=== PATIENT | female | born 1965 | race Caucasian/White ===

== ENCOUNTER 2022-03-19 18:29 | Emergency (ER) | payer MEDICAID, OTHER ==
[~2022-03-19] VITALS: Ht 147.3 cm; Wt 84.0 kg
[~2022-03-19 18:29] MED LIST: AMLODIPINE
[2022-03-19 18:51] VITALS: BP 128/78
[2022-03-20] MEDS ORDERED: ACET-2708 MT (00:43)
== END 2022-03-20 01:44 | disposition home or self-care (01) ==
LOC: ER 18:29
DX: M79.661 Pain in right lower leg (principal); I10 Essential (primary) hypertension; E11.9 Type 2 diabetes mellitus without complications; E03.9 Hypothyroidism, unspecified; Z88.6 Allergy status to analgesic agent
CPT/HCPCS: 73590; 99283

== ENCOUNTER 2024-02-10 07:24 | Emergency (ER) | payer MEDICAID, OTHER ==
[~2024-02-10] VITALS: Ht 149.9 cm; Wt 87.0 kg
[~2024-02-10 07:24] MED LIST changes: +ACET-2708 MT
[2024-02-10 07:28] VITALS: O2SAT 100
[2024-02-10 07:57] VITALS: BP 146/61; PULSE 60; RESP 16; TEMP 97.8; O2SAT 99
[2024-02-10] MEDS ORDERED: IBUP-2029 MT (09:42)
[2024-02-10] MEDS ORDERED: AMOX1TAB16 MT (09:42)
[2024-02-10] MEDS: AMOXICILLIN/POTASSIUM CLAVULANATE 875/125MG TAB PO ONE (10:06)
== END 2024-02-10 11:07 | disposition home or self-care (01) ==
LOC: ER 07:41
DX: K04.7 Periapical abscess without sinus (principal); E11.9 Type 2 diabetes mellitus without complications; E78.00 Pure hypercholesterolemia, unspecified; I10 Essential (primary) hypertension; Z88.6 Allergy status to analgesic agent; Z86.39 Personal history of other endocrine, nutritional and metabolic disease; Z98.890 Other specified postprocedural states
CPT/HCPCS: 99283